=== PATIENT | female | born 1975 | race American Indian/Alaskan Native ===

== ENCOUNTER 2018-11-06 22:19 | Emergency (ER) | payer SELFPAY ==
[2018-11-06 22:26] VITALS: BP 156/94
--- NOTE | 2018-11-06 22:30 | Event Note ---
ED Screening Note Date of service: 11/06/18 Time: 22:26 ED Screening Note: 42 y o rosa presents with sob This initial assessment/diagnostic orders/clinical plan/treatment(s) is/are subject to change based on patients health status, clinical progression and re- assessment by fellow clinical providers in the ED. Further treatment and workup at subsequent clinical providers discretion. Patient/guardian urged not to elope from the ED as their condition may be serious if not clinically assessed and managed. Initial orders include:
[2018-11-06] MEDS ORDERED: DUONEB *Not for PRN Use IH ONE (22:52)
[2018-11-06 22:59] LABS: Hematocrit 41.8 % (30.3-42.9); Hemoglobin 13.6 gm/dl (10.1-14.3); Mean Corpuscular HGB Conc 33 % (30-34); Mean Corpuscular Volume 81 fl (79-97); Platelet Count 250 K/mm3 (140-440); Red Blood Count 5.15 M/mm3 (3.65-5.03); Red Cell Distribution Width 16.1 % (13.2-15.2)
[2018-11-06 23:21] LABS: BUN/Creatinine Ratio 8; Blood Urea Nitrogen 6 mg/dL (7-17); Calcium 9.3 mg/dL (8.4-10.2); Hemolysis Index 4
--- NOTE | 2018-11-07 00:33 | XRay Report ---
CHEST 2 VIEWS INDICATION: Dyspnea. COMPARISON: None. FINDINGS: Support devices: None. Heart: Within normal limits. Lungs/Pleura: No acute air space or interstitial disease. No significant pleural effusion. IMPRESSION: No acute findings. Signer Name: Atul Ariza MD Signed: 11/07/2018 12:28 AM Workstation Name: [email or web address]
[2018-11-07 01:54] LABS: Anisocytosis 1+; Basophils % (Manual) 0 % (0.0-1.8); Platelet Estimate Consistent w Auto; Total Cells Counted 100
[2018-11-07] MEDS ORDERED: DUONEB *Not for PRN Use IH STA (02:50)
[2018-11-07] MEDS ORDERED: SOLU-Medrol IV ONE (02:50)
--- NOTE | 2018-11-07 04:13 | Cat Scan Report ---
CT angio chest INDICATION / CLINICAL INFORMATION: Shortness of breath. Cough. TECHNIQUE: Axial CT images were obtained after injection of Omnipaque 350, 100 cc IV injection. IV contrast usin g CTA protocol. 3 plane MIP / 3D reconstructions were produced. All CT scans at this location are per formed using CT dose reduction for ALARA by means of automated exposure control. COMPARISON: None available. FINDINGS: Negative for aneurysm, dissection or pulmonary embolus. No mediastinal mass or adenopathy is present. Imaging of the upper abdomen is unremarkable. Evaluation the lungs demonstrates patchy nodular infiltrate at the far left base laterally. IMPRESSION: 1. Negative for pulmonary embolus. 2. Left basilar pneumonia. Signer Name: Atul Ariza MD Signed: 11/07/2018 4:08 AM Workstation Name: [id number]
[2018-11-07] MEDS ORDERED: LEVAQUIN PO STA (05:22)
--- NOTE | 2018-11-07 05:31 | Emergency Department Report ---
ED General Adult HPI - General Chief complaint: Dyspnea/Respdistress Stated complaint: SOB Time Seen by Provider: 11/06/18 22:25 Source: patient Mode of arrival: Ambulatory Limitations: No Limitations - History of Present Illness Initial comments: 42-year-old obese female to emergency Department complaining of a 3 day history of a productive cough associated chest discomfort, nasal congestion, wheezing and shortness of breath. Reports this is a dark yellow color, however, no hemoptysis, hematemesis, no hematochezia. Was no fever, chills, sweats. No abdominal pain, no flank pain. No rashes noted to medication and denies smoking. -: Gradual Radiation: non-radiation Quality: burning Consistency: constant Improves with: none Worsens with: none Associated Symptoms: denies: chest pain, cough, diaphoresis, loss of appetite, rash, shortness of breath, syncope, weakness - Related Data Previous Rx's Medication Instructions Recorded Last Taken Type ALBUTEROL Inhaler (OR & NICU) 2 puff IH QID PRN #1 inhalation 11/07/18 Unknown Rx [ProAir HFA Inhaler] Benzonatate [Tessalon Perles] 100 mg PO Q8HR #30 capsule 11/07/18 Unknown Rx levoFLOXacin [Levaquin] 750 mg PO QDAY #7 tablet 11/07/18 Unknown Rx predniSONE [Deltasone] 50 mg PO QDAY #5 tab 11/07/18 Unknown Rx Allergies Allergy/AdvReac Type Severity Reaction Status Date / Time morphine Allergy Hives Verified 11/06/18 22:22 ED Review of Systems ROS: Stated complaint: SOB Other details as noted in HPI Comment: All other systems reviewed and negative ED Past Medical Hx - Past Medical History Previous Medical History?: Yes Hx Asthma: Yes - Surgical History Past Surgical History?: No - Social History Smoking Status: Never Smoker Substance Use Type: None - Medications Home Medications: Home Medications Medication Instructions Recorded Confirmed Last Taken Type ALBUTEROL Inhaler (OR & NICU) 2 puff IH QID PRN #1 inhalation 11/07/18 Unknown Rx [ProAir HFA Inhaler] Benzonatate [Tessalon Perles] 100 mg PO Q8HR #30 capsule 11/07/18 Unknown Rx levoFLOXacin [Levaquin] 750 mg PO QDAY #7 tablet 11/07/18 Unknown Rx predniSONE [Deltasone] 50 mg PO QDAY #5 tab 11/07/18 Unknown Rx ED Physical Exam - General Limitations: No Limitations General appearance: alert, in no apparent distress - Head Head exam: Present: atraumatic, normocephalic - Eye Eye exam: Present: normal appearance, PERRL, EOMI Pupils: Present: normal accommodation - ENT ENT exam: Present: mucous membranes moist - Neck Neck exam: Present: normal inspection - Respiratory Respiratory exam: Present: normal lung sounds bilaterally, wheezes, rhonchi. Absent: respiratory distress, accessory muscle use, decreased breath sounds - Cardiovascular Cardiovascular Exam: Present: regular rate, normal rhythm. Absent: systolic murmur, diastolic murmur, rubs, gallop - GI/Abdominal GI/Abdominal exam: Present: soft, normal bowel sounds - Extremities Exam Extremities exam: Present: normal inspection, full ROM, normal capillary refill. Absent: pedal edema - Back Exam Back exam: Present: normal inspection. Absent: CVA tenderness (R), CVA tenderness (L) - Neurological Exam Neurological exam: Present: alert, oriented X3, CN II-XII intact - Psychiatric Psychiatric exam: Present: normal affect, normal mood - Skin Skin exam: Present: warm, dry, intact, normal color. Absent: rash ED Course Vital Signs 11/06/18 11/06/18 22:25 22:58 Temperature 98.2 F Pulse Rate 119 H Pulse Rate [ 89 Anterior] Respiratory 20 Rate Respiratory 18 Rate [Anterior] Blood Pressure 156/94 O2 Sat by Pulse 100 Oximetry ED Medical Decision Making - Lab Data Result diagrams: 11/06/18 22:47 11/06/18 22:47 - Medical Decision Making 42-year-old female presents to emergency department complaining of chest pain and coughing. Chest x-ray consistent with left basilar pneumonia. She'll be given an antibiotic-coated to take for the next few days in conjunction with the inhaler and cough medication. There is no hemoptysis Critical care attestation.: If time is entered above; I have spent that time in minutes in the direct care of this critically ill patient, excluding procedure time. ED Disposition Clinical Impression: Left lower lobe pneumonia Disposition: DC-01 TO HOME OR SELFCARE Is pt being admited?: No Does the pt Need Aspirin: No Condition: Stable Instructions: Bacterial Pneumonia (ED), Community-acquired Pneumonia (ED) Referrals: PRIMARY CARE, [Primary Care Provider] - 3-5 Days [facility] [Provider Group] - 3-5 Days
[2018-11-07] MEDS ORDERED: PROVENTIL IH ONE (05:45)
[2018-11-07] MEDS ORDERED: SOLU-Medrol ONE (05:45)
[2018-11-07] MEDS ORDERED: ATROVENT IH ONE (05:46)
== END 2018-11-07 07:26 | disposition home or self-care (01) ==
LOC: ED 22:19
DX: J18.1 Lobar pneumonia, unspecified organism (principal); J45.909 Unspecified asthma, uncomplicated; Z79.899 Other long term (current) drug therapy; Z88.6 Allergy status to analgesic agent
CPT/HCPCS: 36415; 71046; 71275; 80048; 82140; 85007; 85025; 85379; 94640; 96374; 99285; J2930; Q9967; 94644

== ENCOUNTER 2018-11-24 07:58 | Emergency (ER) | payer SELFPAY ==
[2018-11-24] MEDS ORDERED: ATROVENT IH ONE ×2 (08:11→09:15)
[2018-11-24] MEDS ORDERED: PROVENTIL IH ONE ×2 (08:11→09:15)
--- NOTE | 2018-11-24 08:16 | Emergency Department Report ---
ED Shortness of Breath HPI - General Chief Complaint: Dyspnea/Respdistress Stated Complaint: ASTHMA Time Seen by Provider: 11/24/18 08:10 Source: EMS Mode of arrival: Stretcher Limitations: No Limitations - History of Present Illness Initial Comments: Patient is 43 years old female with history of asthma. Patient brought to the emergency room via EMS from home for asthma attack. Patient stated the symptoms started last night with shortness of breath and wheezing. Patient stated that she was admitted last time for pneumonia. Patient denied any fever or chills. No nausea or vomiting. No chest pain. Patient received albuterol, Atrovent, Solu-Medrol and 2 g of magnesium sulfate by EMS. Patient stated that symptoms is better but she is still wheezing. MD Complaint: shortness of breath, cough, "asthma attack" -: Last night Known History Of: asthma Context: recent URI Treatments Prior to Arrival: bronchodilator - Related Data Home Oxygen Therapy: No Previous Rx's Medication Instructions Recorded Last Taken Type ALBUTEROL Inhaler (OR & NICU) 2 puff IH QID PRN #1 inhalation 11/07/18 Unknown Rx [ProAir HFA Inhaler] Benzonatate [Tessalon Perles] 100 mg PO Q8HR #30 capsule 11/07/18 Unknown Rx levoFLOXacin [Levaquin] 750 mg PO QDAY #7 tablet 11/07/18 Unknown Rx predniSONE [Deltasone] 50 mg PO QDAY #5 tab 11/07/18 Unknown Rx Allergies Allergy/AdvReac Type Severity Reaction Status Date / Time morphine Allergy Hives Verified 11/06/18 22:22 ED Review of Systems ROS: Stated complaint: ASTHMA Other details as noted in HPI Comment: All other systems reviewed and negative Constitutional: denies: chills, fever Respiratory: cough, shortness of breath, SOB with exertion, SOB at rest, wheezing. denies: orthopnea Cardiovascular: denies: chest pain, palpitations Gastrointestinal: denies: abdominal pain, nausea, vomiting ED Past Medical Hx - Past Medical History Previous Medical History?: Yes Hx Asthma: Yes - Surgical History Past Surgical History?: No - Social History Smoking Status: Never Smoker Substance Use Type: None - Medications Home Medications: Home Medications Medication Instructions Recorded Confirmed Last Taken Type ALBUTEROL Inhaler (OR & NICU) 2 puff IH QID PRN #1 inhalation 11/07/18 Unknown Rx [ProAir HFA Inhaler] Benzonatate [Tessalon Perles] 100 mg PO Q8HR #30 capsule 11/07/18 Unknown Rx levoFLOXacin [Levaquin] 750 mg PO QDAY #7 tablet 11/07/18 Unknown Rx predniSONE [Deltasone] 50 mg PO QDAY #5 tab 11/07/18 Unknown Rx ED Physical Exam - General Limitations: No Limitations General appearance: alert, in no apparent distress - Head Head exam: Present: atraumatic, normocephalic, normal inspection - Eye Eye exam: Present: normal appearance - ENT ENT exam: Present: normal exam, mucous membranes moist - Neck Neck exam: Present: normal inspection, full ROM. Absent: tenderness, meningismu s, lymphadenopathy, thyromegaly - Respiratory Respiratory exam: Present: wheezes, rhonchi. Absent: respiratory distress, rales, stridor, chest wall tenderness, accessory muscle use, decreased breath sounds, prolonged expiratory - Cardiovascular Cardiovascular Exam: Present: regular rate, normal rhythm, normal heart sounds - GI/Abdominal GI/Abdominal exam: Present: soft, normal bowel sounds. Absent: distended, tenderness, guarding, rebound, rigid, organomegaly, mass, bruit, pulsatile mass, hernia - Extremities Exam Extremities exam: Present: normal inspection, full ROM, normal capillary refill. Absent: pedal edema, calf tenderness - Back Exam Back exam: Present: normal inspection, full ROM. Absent: CVA tenderness (R), CVA tenderness (L), muscle spasm, paraspinal tenderness, vertebral tenderness, rash noted - Neurological Exam Neurological exam: Present: alert, oriented X3, CN II-XII intact, normal gait, reflexes normal - Psychiatric Psychiatric exam: Present: normal mood - Skin Skin exam: Present: warm, intact, normal color ED Course Vital Signs 11/24/18 11/24/18 11/24/18 07:59 08:15 08:25 Temperature 98.4 F Pulse Rate 126 H 128 H Pulse Rate [ 123 H Posterior Bilateral Throughout] Respiratory 20 24 Rate Respiratory 22 Rate [Posterior Bilateral Throughout] Blood Pressure 162/98 Blood Pressure 161/99 [Right] O2 Sat by Pulse 94 94 Oximetry 11/24/18 11/24/18 09:19 10:02 Temperature Pulse Rate 128 H Pulse Rate [ 127 H Posterior Bilateral Throughout] Respiratory 22 Rate Respiratory 24 Rate [Posterior Bilateral Throughout] Blood Pressure Blood Pressure 130/79 [Right] O2 Sat by Pulse 94 Oximetry ED Medical Decision Making - Lab Data Result diagrams: 11/24/18 08:24 11/24/18 08:24 - EKG Data -: EKG Interpreted by Me EKG shows normal: sinus rhythm Rate: tachycardia - EKG Data Interpretation: no acute changes - Radiology Data Radiology results: report reviewed - Medical Decision Making Patient is 43 years old female with history of asthma. Patient brought to the emergency room via EMS from home for asthma attack. Patient stated the symptoms started last night with shortness of breath and wheezing. Patient stated that she was admitted last time for pneumonia. Patient denied any fever or chills. No nausea or vomiting. No chest pain. Patient received albuterol, Atrovent, Solu-Medrol and 2 g of magnesium sulfate by EMS. Patient stated that symptoms is better but she is still wheezing. Patient received albuterol, Atrovent, Solu-Medrol. Patient just x-ray is unremarkable. Labs reviewed and is negative for acute findings. Patient stated that she is feeling much better. Patient advised to follow his heart primary care physician in the next 2-3 days and to return to the ER if symptoms are not improved. Patient given a prescription for Medrol pack. Critical care attestation.: If time is entered above; I have spent that time in minutes in the direct care of this critically ill patient, excluding procedure time. ED Disposition Clinical Impression: Asthma exacerbation Disposition: DC-01 TO HOME OR SELFCARE Is pt being admited?: No Condition: Stable Instructions: Asthma (ED) Referrals: PRIMARY CARE, [Primary Care Provider] - 3-5 Days
[2018-11-24 08:51] LABS: Basophils # (Auto) 0.1 K/mm3 (0.0-0.1); Eosinophils # (Auto) 1.6 K/mm3 (0.0-0.4); Eosinophils % (Auto) 15.1 % (0.0-4.3); Hematocrit 36.3 % (30.3-42.9); Hemoglobin 11.5 gm/dl (10.1-14.3); Lymphocytes # (Auto) 1.5 K/mm3 (1.2-5.4); Lymphocytes % (Auto) 14.6 % (13.4-35.0); Mean Corpuscular HGB Conc 32 % (30-34); Mean Corpuscular Volume 80 fl (79-97); Monocytes # (Auto) 0.7 K/mm3 (0.0-0.8); Monocytes % (Auto) 7.1 % (0.0-7.3); Platelet Count 241 K/mm3 (140-440); Red Blood Count 4.53 M/mm3 (3.65-5.03); Red Cell Distribution Width 15.9 % (13.2-15.2)
[2018-11-24 09:05] LABS: BUN/Creatinine Ratio 7; Blood Urea Nitrogen 5 mg/dL (7-17); Calcium 8.7 mg/dL (8.4-10.2); Hemolysis Index 5
--- NOTE | 2018-11-24 09:11 | XRay Report ---
CHEST 1 VIEW INDICATION: Dyspnea. COMPARISON: 11/06/2018 FINDINGS: Support devices: None. Heart: Within normal limits. Lungs/Pleura: Minimal streaky bibasilar atelectasis with otherwise clear lungs. Additional findings: None. IMPRESSION: 1. Minimal streaky bibasilar atelectasis with otherwise clear lungs. Signer Name: Eliseo Saenz MD Signed: 11/24/2018 9:06 AM Workstation Name: [id number]
[2018-11-24 11:33] VITALS: BP 122/74
== END 2018-11-24 11:32 | disposition home or self-care (01) ==
LOC: ED 07:58
DX: J45.901 Unspecified asthma with (acute) exacerbation (principal)
CPT/HCPCS: 36415; 71045; 80048; 85025; 93005; 93010; 94644

== ENCOUNTER 2018-12-16 08:32 | Observation (INO) | payer SELFPAY ==
[2018-12-16] MEDS ORDERED: ATROVENT IH ONE ×3 (08:48→13:37)
[2018-12-16] MEDS ORDERED: DECADRON IM ONE (08:48)
[2018-12-16] MEDS ORDERED: PROVENTIL IH ONE ×3 (08:48→13:37)
--- NOTE | 2018-12-16 08:53 | Emergency Department Report ---
<JOSEFINA MOTA - Last Filed: 12/16/18 20:24> ED Asthma HPI - General Chief Complaint: Adult Asthma Stated Complaint: SOB/HEAVY WHEZZING Time Seen by Provider: 12/16/18 08:44 Source: patient Mode of arrival: Ambulatory Limitations: No Limitations - History of Present Illness Initial Comments: Patient is a 43-year-old female presents emergency room with complaints of shortness of breath and wheezing for the last 3 days. She says it worsened today. She states that she has also had a productive cough with mucus production. She denies any fever or sick contacts. She states that she has past medical history of asthma and uses Symbicort and albuterol nebulizer treatments. She was last admitted for her asthma year ago. she has never had to be intubated before. Patient states her last menstrual cycle November 20. She has had tubal ligation and partial hysterectomy. - Related Data Previous Rx's Medication Instructions Recorded Last Taken Type ALBUTEROL Inhaler (OR & NICU) 2 puff IH QID PRN #1 inhalation 11/07/18 Unknown Rx [ProAir HFA Inhaler] Benzonatate [Tessalon Perles] 100 mg PO Q8HR #30 capsule 11/07/18 Unknown Rx levoFLOXacin [Levaquin] 750 mg PO QDAY #7 tablet 11/07/18 Unknown Rx predniSONE [Deltasone] 50 mg PO QDAY #5 tab 11/07/18 Unknown Rx Prednisone [predniSONE 10 mg 10 mg PO .TAPER #1 tab.ds.pk 11/24/18 Unknown Rx (6-Day Pack, 21 Tabs)] Allergies Allergy/AdvReac Type Severity Reaction Status Date / Time morphine Allergy Hives Verified 11/06/18 22:22 ED Review of Systems Comment: All other systems reviewed and negative ED Past Medical Hx - Past Medical History Hx Asthma: Yes - Surgical History Past Surgical History?: No - Social History Smoking Status: Never Smoker Substance Use Type: None - Medications Home Medications: Home Medications Medication Instructions Recorded Confirmed Last Taken Type ALBUTEROL Inhaler (OR & NICU) 2 puff IH QID PRN #1 inhalation 11/07/18 Unknown Rx [ProAir HFA Inhaler] Benzonatate [Tessalon Perles] 100 mg PO Q8HR #30 capsule 11/07/18 Unknown Rx levoFLOXacin [Levaquin] 750 mg PO QDAY #7 tablet 11/07/18 Unknown Rx predniSONE [Deltasone] 50 mg PO QDAY #5 tab 11/07/18 Unknown Rx Prednisone [predniSONE 10 mg 10 mg PO .TAPER #1 tab.ds.pk 11/24/18 Unknown Rx (6-Day Pack, 21 Tabs)] ED Physical Exam - General Limitations: No Limitations General appearance: alert, in no apparent distress - Head Head exam: Present: atraumatic, normocephalic - Eye Eye exam: Present: normal appearance - ENT ENT exam: Present: normal orophraynx, mucous membranes moist - Respiratory Respiratory exam: Present: respiratory distress (mild), wheezes (diffusely upon inspiration and expiration), rhonchi, prolonged expiratory, other (audible wheezing without auscultation). Absent: rales, stridor, chest wall tenderness, accessory muscle use - Cardiovascular Cardiovascular Exam: Present: regular rate, normal rhythm, normal heart sounds. Absent: systolic murmur, diastolic murmur, rubs, gallop - Neurological Exam Neurological exam: Present: alert, oriented X3 - Psychiatric Psychiatric exam: Present: normal affect, normal mood - Skin Skin exam: Present: warm, dry, intact ED Course - Reevaluation(s) Reevaluation #1: 12/16/18 16:06 pt has been given three continuous neb tx, steroids, magnesium, and placed on oxygen, pt still has expiratory and inspiratory wheezes with rhonchi, pt walked in the hallway with oxygen saturation monitor and dropped to 90 percent O2 sat and pt felt SOB, will consult DR. Welch again. Reevaluation #2: 12/16/18 20:23 Dr. Patel, ER attending will resume care of patient pending admission to the hospital - Consultations Consultation #1: 12/16/18 13:[address] Welch, hospitalist to discuss pt needing to be admitted, he states he will evaluate pt at bedside Consultation #2: 12/16/18 14:23 Dr. Welch, hospitalist evaluated pt at bedside and counseled pt and advised that pt does not meet admission criteria ED Medical Decision Making - Lab Data Result diagrams: 12/16/18 16:59 12/16/18 16:59 Lab Results 12/16/18 12/16/18 12/16/18 Range/Units 13:38 16:57 16:59 WBC 6.1 (4.5-11.0) K/mm3 RBC 4.75 (3.65-5.03) M/mm3 Hgb 12.0 (10.1-14.3) gm/dl Hct 37.7 (30.3-42.9) % MCV 79 (79-97) fl MCH 25 L (28-32) pg MCHC 32 (30-34) % RDW 17.3 H (13.2-15.2) % Plt Count 230 (140-440) K/mm3 Lymph % (Auto) Disintegrator Operator [place] % (Auto) Disintegrator Operator Eos % (Auto) Disintegrator Operator Baso % (Auto) Disintegrator Operator Lymph # Disintegrator Operator [place] # Disintegrator Operator Eos # Disintegrator Operator Baso # Disintegrator Operator Add Manual Diff Complete Total Counted 100 Seg Neutrophils % Disintegrator Operator Seg Neuts % (Manual) 90.0 H (40.0-70.0) % Band Neutrophils % 1.0 % Lymphocytes % (Manual) 8.0 L (13.4-35.0) % Reactive Lymphs % (Man) 0 % Monocytes % (Manual) 0 (0.0-7.3) % Eosinophils % (Manual) 1.0 (0.0-4.3) % Basophils % (Manual) 0 (0.0-1.8) % Metamyelocytes % 0 % Myelocytes % 0 % Promyelocytes % 0 % Blast Cells % 0 % Nucleated RBC % Not Reportable Seg Neutrophils # Disintegrator Operator Seg Neutrophils # Man 5.5 (1.8-7.7) K/mm3 Band Neutrophils # 0.1 K/mm3 Lymphocytes # (Manual) 0.5 L (1.2-5.4) K/mm3 Abs React Lymphs (Man) 0.0 K/mm3 Monocytes # (Manual) 0.0 (0.0-0.8) K/mm3 Eosinophils # (Manual) 0.1 (0.0-0.4) K/mm3 Basophils # (Manual) 0.0 (0.0-0.1) K/mm3 Metamyelocytes # 0.0 K/mm3 Myelocytes # 0.0 K/mm3 Promyelocytes # 0.0 K/mm3 Blast Cells # 0.0 K/mm3 WBC Morphology Not Reportable Hypersegmented Neuts Not Reportable Hyposegmented Neuts Not Reportable Hypogranular Neuts Not Reportable Smudge Cells Not Reportable Toxic Granulation Not Reportable Toxic Vacuolation Not Reportable Dohle Bodies Not Reportable Pelger-Huet Anomaly Not Reportable Ana Rods Not Reportable Platelet Estimate Consistent w auto Clumped Platelets Not Reportable Plt Clumps, EDTA Not Reportable Large Platelets Not Reportable Giant Platelets Not Reportable Platelet Satelliting Not Reportable Plt Morphology Comment Not Reportable RBC Morphology Not Reportable Dimorphic RBCs Not Reportable Polychromasia Not Reportable Hypochromasia 1+ Poikilocytosis Not Reportable Anisocytosis Not Reportable Microcytosis Not Reportable Macrocytosis Not Reportable Spherocytes Not Reportable Pappenheimer Bodies Not Reportable Sickle Cells Not Reportable Target Cells Not Reportable Tear Drop Cells Not Reportable Ovalocytes Few Helmet Cells Not Reportable Pastr[place] Bodies Not Reportable [place] Rings Not Reportable Misty Cells Not Reportable Bite Cells Not Reportable Crenated Cell Not Reportable Elliptocytes Not Reportable Acanthocytes (Spur) Not Reportable Rouleaux Not Reportable Hemoglobin C Crystals Not Reportable Schistocytes Not Reportable Malaria parasites Not Reportable Selvin Bodies Not Reportable Hem Pathologist Commnt No POC ABG pH 7.371 (7.35-7.45) POC ABG pCO2 34.3 L (35-45) POC ABG pO2 66 L (80-105) POC ABG HCO3 19.9 (22-26 mml/L) POC ABG Total CO2 21 (23-27mmol/L) POC ABG O2 Sat 92 POC ABG Base Excess -5 ((-2) - (+3)mmol/L) FiO2 21 % Sodium (137-145) mmol/L Potassium (3.6-5.0) mmol/L Chloride (98-107) mmol/L Carbon Dioxide (22-30) mmol/L Anion Gap mmol/L BUN (7-17) mg/dL Creatinine (0.7-1.2) mg/dL Estimated GFR ml/min BUN/Creatinine Ratio % Glucose (65-100) mg/dL Calcium (8.4-10.2) mg/dL Total Bilirubin (0.1-1.2) mg/dL AST (5-40) units/L ALT (7-56) units/L Alkaline Phosphatase (35-129) units/L Total Protein (6.3-8.2) g/dL Albumin (3.9-5) g/dL Albumin/Globulin Ratio % HCG, Qual (Negative) Urine Color Yellow (Yellow) Urine Turbidity Slightly-cloudy (Clear) Urine pH 5.0 (5.0-7.0) Ur Specific [place] 1.012 (1.003-1.030) Urine Protein 30 mg/dl (Negative) mg/dL Urine Glucose (UA) Neg (Negative) mg/dL Urine Ketones 20 (Negative) mg/dL Urine Blood Neg (Negative) Urine Nitrite Neg (Negative) Urine Bilirubin Neg (Negative) Urine Urobilinogen < 2.0 (<2.0) mg/dL Ur Leukocyte Esterase Tr (Negative) Urine WBC (Auto) 3.0 (0.0-6.0) /HPF Urine RBC (Auto) 3.0 (0.0-6.0) /HPF U Epithel Cells (Auto) 5.0 (0-13.0) /HPF Urine Mucus Few /HPF 12/16/18 12/16/18 Range/Units 16:59 16:59 WBC (4.5-11.0) K/mm3 RBC (3.65-5.03) M/mm3 Hgb (10.1-14.3) gm/dl Hct (30.3-42.9) % MCV (79-97) fl MCH (28-32) pg MCHC (30-34) % RDW (13.2-15.2) % Plt Count (140-440) K/mm3 Lymph % (Auto) [place] % (Auto) Eos % (Auto) Baso % (Auto) Lymph # [place] # Eos # Baso # Add Manual Diff Total Counted Seg Neutrophils % Seg Neuts % (Manual) (40.0-70.0) % Band Neutrophils % % Lymphocytes % (Manual) (13.4-35.0) % Reactive Lymphs % (Man) % Monocytes % (Manual) (0.0-7.3) % Eosinophils % (Manual) (0.0-4.3) % Basophils % (Manual) (0.0-1.8) % Metamyelocytes % % Myelocytes % % Promyelocytes % % Blast Cells % % Nucleated RBC % Seg Neutrophils # Seg Neutrophils # Man (1.8-7.7) K/mm3 Band Neutrophils # K/mm3 Lymphocytes # (Manual) (1.2-5.4) K/mm3 Abs React Lymphs (Man) K/mm3 Monocytes # (Manual) (0.0-0.8) K/mm3 Eosinophils # (Manual) (0.0-0.4) K/mm3 Basophils # (Manual) (0.0-0.1) K/mm3 Metamyelocytes # K/mm3 Myelocytes # K/mm3 Promyelocytes # K/mm3 Blast Cells # K/mm3 WBC Morphology Hypersegmented Neuts Hyposegmented Neuts Hypogranular Neuts Smudge Cells Toxic Granulation Toxic Vacuolation Dohle Bodies Pelger-Huet Anomaly Ana Rods Platelet Estimate Clumped Platelets Plt Clumps, EDTA Large Platelets Giant Platelets Platelet Satelliting Plt Morphology Comment RBC Morphology Dimorphic RBCs Polychromasia Hypochromasia Poikilocytosis Anisocytosis Microcytosis Macrocytosis Spherocytes Pappenheimer Bodies Sickle Cells Target Cells Tear Drop Cells Ovalocytes Helmet Cells Pastrana-[place] Bodies Ellabell Rings [place] Cells Bite Cells Crenated Cell Elliptocytes Acanthocytes (Spur) Rouleaux Hemoglobin C Crystals Schistocytes Malaria parasites Selvin Bodies Hem Pathologist Commnt POC ABG pH (7.35-7.45) POC ABG pCO2 (35-45) POC ABG pO2 (80-105) POC ABG HCO3 (22-26 mml/L) POC ABG Total CO2 (23-27mmol/L) POC ABG O2 Sat POC ABG Base Excess ((-2) - (+3)mmol/L) FiO2 % Sodium 139 (137-145) mmol/L Potassium 3.7 (3.6-5.0) mmol/L Chloride 104.4 (98-107) mmol/L Carbon Dioxide 19 L (22-30) mmol/L Anion Gap 19 mmol/L BUN 6 L (7-17) mg/dL Creatinine 0.7 (0.7-1.2) mg/dL Estimated GFR > 60 ml/min BUN/Creatinine Ratio 9 % Glucose 146 H (65-100) mg/dL Calcium 8.7 (8.4-10.2) mg/dL Total Bilirubin 0.30 (0.1-1.2) mg/dL AST 28 (5-40) units/L ALT 48 (7-56) units/L Alkaline Phosphatase 64 (35-129) units/L Total Protein 7.8 (6.3-8.2) g/dL Albumin 4.1 (3.9-5) g/dL Albumin/Globulin Ratio 1.1 % HCG, Qual Negative (Negative) Urine Color (Yellow) Urine Turbidity (Clear) Urine pH (5.0-7.0) Ur Specific [place] (1.003-1.030) Urine Protein (Negative) mg/dL Urine Glucose (UA) (Negative) mg/dL Urine Ketones (Negative) mg/dL Urine Blood (Negative) Urine Nitrite (Negative) Urine Bilirubin (Negative) Urine Urobilinogen (<2.0) mg/dL Ur Leukocyte Esterase (Negative) Urine WBC (Auto) (0.0-6.0) /HPF Urine RBC (Auto) (0.0-6.0) /HPF U Epithel Cells (Auto) (0-13.0) /HPF Urine Mucus /HPF - Radiology Data Radiology results: report reviewed CHEST 2 VIEWS INDICATION / CLINICAL INFORMATION: cough, wheezing. History of asthma COMPARISON: 11/24/2018 FINDINGS: SUPPORT DEVICES: None. HEART / MEDIASTINUM: No significant abnormality. LUNGS / PLEURA: Mild chronic interstitial disease is noted. There is mild peribronchial cuffing indicative of reactive airways disease/asthma. Overall appearance of the chest radiograph is unchanged. I do not see any findings to suggest the presence of pneumonia. No pleural effusion. No pneumothorax. IMPRESSION: Mild chronic interstitial disease with peribronchial cuffing consistent with patient's history of asthma. No focal superimposed disease noted. Signer Name: Elana Huerta MD Signed: 12/16/2018 11:54 AM Workstation Name: [id number] Transcribed By: JR Dictated By: Elana Huerta MD Electronically Authenticated By: Elana Huerta MD Signed Date/Time: 12/16/18 1154 ED Disposition Clinical Impression: Hypoxia Asthma with acute exacerbation Qualifiers: Asthma severity: severe Asthma persistence: persistent Qualified Code(s): J45.51 - Severe persistent asthma with (acute) exacerbation Acute bronchitis Qualifiers: Bronchitis organism: unspecified organism Qualified Code(s): J20.9 - Acute bronchitis, unspecified Disposition: DC-09 OP ADMIT IP TO THIS HOSP Condition: Stable Instructions: Acute Bronchitis (ED) Referrals: PRIMARY CAREMD [Primary Care Provider] - 3-5 Days <NAROLANDO - Last Filed: 12/16/18 21:34> ED Review of Systems ROS: Stated complaint: SOB/HEAVY WHEZZING Other details as noted in HPI ED Course Vital Signs 12/16/18 12/16/18 12/16/18 08:39 11:42 13:10 Temperature 98.9 F Pulse Rate 101 H 104 H Pulse Rate [ 102 H Anterior Bilateral Throughout] Respiratory 22 18 Rate Respiratory 19 Rate [Anterior Bilateral Throughout] Blood Pressure 157/94 153/84 [Left] O2 Sat by Pulse 96 95 Oximetry 12/16/18 12/16/18 13:44 16:34 Temperature Pulse Rate Pulse Rate [ 101 H 104 H Anterior Bilateral Throughout] Respiratory Rate Respiratory 17 17 Rate [Anterior Bilateral Throughout] Blood Pressure [Left] O2 Sat by Pulse Oximetry - Reevaluation(s) Reevaluation #3: 12/16/18 21:28 This patient was presented to me by the mid-level provider MARISSA Ibrahim. Patient presented to the emergency room with shortness of breath and asthma exacerbation. Despite multiple breathing treatments, steroids, antibiotics, patient is still wheezing and she does desaturate to 90% on room air when she ambulates in the ED. I attempted to admit the patient to Dr. Welch the hospitalist. However he declined to admitting the patient. Clinically this patient needs to be admitted for observation until she clinically improves to a point for discharge. I will talk to her overnight hospitalist Dr. Dan and possibly admit the patient for observation. Clinically patient is not ready to be discharged yet. - Consultations Consultation #3: 12/16/18 21:28 Discussed patient with the hospitalist on-call Dr Dan. He will admit the patient for observation and further management. ED Medical Decision Making - Lab Data Result diagrams: 12/16/18 16:59 12/16/18 16:59 - Medical Decision Making Acute asthma exacerbation. Acute bronchitis. Hypoxia. Patient desaturates when she walks around the emergency room. She is still wheezing despite multiple breathing treatments, antibiotics and steroids. Patient meets criteria to be admitted for observation until clinical improvement is a shift. Critical care attestation.: If time is entered above; I have spent that time in minutes in the direct care of this critically ill patient, excluding procedure time. ED Disposition Is pt being admited?: Yes Does the pt Need Aspirin: No Time of Disposition: 21:34
[2018-12-16] MEDS ORDERED: MAGNESIUM SULFATE 1 GM in NACL 0.9% 50 ML IV ONE (11:10)
--- NOTE | 2018-12-16 11:59 | XRay Report ---
CHEST 2 VIEWS INDICATION / CLINICAL INFORMATION: cough, wheezing. History of asthma COMPARISON: 11/24/2018 FINDINGS: SUPPORT DEVICES: None. HEART / MEDIASTINUM: No significant abnormality. LUNGS / PLEURA: Mild chronic interstitial disease is noted. There is mild peribronchial cuffing indic ative of reactive airways disease/asthma. Overall appearance of the chest radiograph is unchanged. I do not see any findings to suggest the presence of pneumonia. No pleural effusion. No pneumothorax. IMPRESSION: Mild chronic interstitial disease with peribronchial cuffing consistent with patient's hi story of asthma. No focal superimposed disease noted. Signer Name: Elana Huerta MD Signed: 12/16/2018 11:54 AM Workstation Name: [id number]
[2018-12-16] MEDS ORDERED: XYLOCAINE 1% MPF 5 mL INFILTRATI ONE (13:16)
[2018-12-16] MEDS ORDERED: ROCEPHIN IM ONE (13:16)
[2018-12-16] MEDS ORDERED: ZITHROMAX PO ONE (13:19)
[2018-12-16] MEDS ORDERED: SOLU-Medrol IV ONE (16:45)
[2018-12-16 17:23] LABS: Bilirubin,Urine NEG (Negative); Blood,Urine NEG (Negative); Color,Urine Yellow (Yellow); Mucus,Urine FEW /HPF; Urobilinogen,Urine < 2.0 mg/dL (<2.0)
[2018-12-16 17:26] LABS: Hematocrit 37.7 % (30.3-42.9); Mean Corpuscular HGB Conc 32 % (30-34); Mean Corpuscular Volume 79 fl (79-97); Platelet Count 230 K/mm3 (140-440); Red Blood Count 4.75 M/mm3 (3.65-5.03); Red Cell Distribution Width 17.3 % (13.2-15.2)
[2018-12-16 17:37] LABS: Alanine Aminotransferase 48 units/L (7-56); Albumin 4.1 g/dL (3.9-5); BUN/Creatinine Ratio 9; Blood Urea Nitrogen 6 mg/dL (7-17); Calcium 8.7 mg/dL (8.4-10.2); Hemolysis Index 3
--- NOTE | 2018-12-16 18:16 | Event Note ---
Date: 12/16/18 Pt seen and evaluated: Pt does not meet admission criteria. Pulse oximetry 95% on Room air, 92% on exertion.
[2018-12-16 19:27] LABS: Band Neutrophils # (Manual) 0.1 K/mm3; Basophils % (Manual) 0 % (0.0-1.8); Monocytes % (Manual) 0 % (0.0-7.3); Total Cells Counted 100
[2018-12-16] MEDS ORDERED: NACL 0.9% 1000 ML 1,000 ML IV ONE (19:27)
[2018-12-16 19:28] LABS: Hypochromasia 1+; Ovalocytes Few; Platelet Estimate Consistent w Auto
[2018-12-16] MEDS ORDERED: TYLENOL PO PRN (22:34)
[2018-12-17] MEDS: HEPARIN SUB-Q SCH ×2 (01:47→09:36)
[2018-12-17] MEDS ORDERED: ROBITUSSIN PO PRN (04:29)
--- NOTE | 2018-12-17 04:46 | History and Physical Report ---
CHIEF COMPLAINT: Shortness of breath. Other complaint include cough. HISTORY OF PRESENT ILLNESS: The patient is a 43-year-old female with past medical history of asthma, who presented to the Emergency Room with history of shortness of breath and wheezing going on for 3 days. Also, the patient complained about cough productive of yellow sputum. There is no history of fever or chills and no history of nausea or vomiting. The patient also denied history of chest pain and said that she has been using albuterol nebulizer at home without much relief. The patient came to the Emergency Room and was treated with nebulizers and steroids, but when the patient was about to be discharged, she desaturated when she was made to engage in some mild walking activity. The patient was subsequently presented for admission. PAST MEDICAL HISTORY: Pertinent for asthma. PAST SURGICAL HISTORY: Unremarkable. FAMILY HISTORY: Noncontributory. SOCIAL HISTORY: The patient lives with family. Does not smoke, does not drink alcohol and does not use illicit drugs. MEDICATIONS: The patient's home medications include albuterol inhaler 2 puffs by inhalation q.i.d. Also, the patient is on budesonide 2 mL by inhalation q. 4 hours. ALLERGIES: THE PATIENT IS ALLERGIC TO MORPHINE. REVIEW OF SYSTEMS: CONSTITUTIONAL: There is no fever, no chills, no diaphoresis. HEENT: There is no headache or sore throat. CARDIOVASCULAR SYSTEM: There is no chest pain or orthopnea. RESPIRATORY SYSTEM: Shortness of breath is present. Cough is present. Wheezing is present. GASTROINTESTINAL SYSTEM: There is no nausea, no vomiting, no abdominal pain, diarrhea or constipation. NEUROLOGICAL SYSTEM: There is no numbness, no dizziness, no altered mental status. MUSCULOSKELETAL SYSTEM: There is no joint pain or swelling. DERMATOLOGICAL SYSTEM: There is no skin rash or itching. GENITOURINARY SYSTEM: There is no dysuria, hematuria, or flank pain. Rest of system review is normal. PHYSICAL EXAMINATION: GENERAL: At the time of exam, the patient was found to be alert, oriented x 3 and not in acute distress. VITAL SIGNS: At the time of initial presentation shows temperature of 98.9 degrees Fahrenheit, pulse of 101, respirations 22, blood pressure 157/94, O2 sat of 96% on oxygen. HEENT: Showed pupils to be equal, round, reactive to light and accommodating. Extraocular muscles are intact. NECK: Supple with no JVD or carotid bruit. CARDIOVASCULAR SYSTEM: Showed normal first and second heart sounds with no gallops or murmurs. RESPIRATORY SYSTEM: Show reduced air entry on both sides of the lungs with expiratory wheezing and scattered crackles bilaterally. There is no use of extra-respiratory muscles. GASTROINTESTINAL SYSTEM: Show abdomen to be full, soft, nontender with no organomegaly or rigidity. NEUROLOGIC: Shows no focal deficit. MUSCULOSKELETAL SYSTEM: Show no joint swelling or tenderness. DERMATOLOGICAL SYSTEM: Show no skin rash. GENITOURINARY SYSTEM: Showing no costovertebral angle tenderness. PERTINENT LABORATORY AND IMAGING STUDIES: The patient had chest x-ray done that shows mild chronic interstitial disease with peribronchial cuffing consistent with the patient's history of asthma. There is no focal superimposed disease noted. The patient's lab results show CBC with normal white count, normal hemoglobin and normal hematocrit with CBC differential showing elevated segmented neutrophil count of 90%. Rest of CBC was unremarkable. The patient's blood gas showed normal pH of 7.37 with low pCO2 of 34, low pO2 of 66 and low O2 sat of 92% and this was done on room air. The patient's chemistry was unremarkable except for low CO2 of 19 and the patient's test was negative. Urinalysis came back unremarkable. DIAGNOSES: 1. Asthma exacerbation. 2. Hypoxia. PLAN OF CARE: 1. The patient will be placed on observation in the medical surgical . 2. The patient will be on Duo nebulizer q.i.d. 3. The patient will be on IV ceftriaxone 1 gram daily and IV Zithromax 500 mg daily. 4. The patient will be on heparin 5000 units subcutaneous q. 12 hours for DVT prophylaxis and will be on Tylenol 650 mg by mouth every 4 hours for fever and headache. 5. The patient will be on IV Solu-Medrol 60 mg q. 8 hours. 6. The patient will be on Robitussin 200 mg by mouth every 4 hours as needed for cough. 7. The patient's diet will be a regular diet. 8. patient will be on oxygen by nasal canular at 2l/min JOB# [id number] OCN/NTS MTDD
[2018-12-17] MEDS ORDERED: SOLU-Medrol IV SCH (06:00)
[2018-12-17] MEDS ORDERED: DUONEB *Not for PRN Use IH SCH (08:00)
--- NOTE | 2018-12-17 08:13 | Progress Note ---
Assessment and Plan Assessment and plan: 43-year-old woman who presents to the hospital with shortness of breath and wheezing x3 days Past medical history asthma Asthma exacerbation Steroids nebs, chest PT Acute hypoxic respiratory failure Oxygen supplementation wean as tolerated DVT prophylaxis with Lovenox History Interval history: Review of systems Constitutional: No fevers, no malaise, no joint pains CVS: No chest pain, no orthopnea, no pedal edema GI: No abdominal pain, no diarrhea, no vomiting, no constipation Respiratory: Complaining of shortness of breath and wheezing Hospitalist Physical - Physical exam Narrative exam: General.: Mild distress HEENT: Moist mucous membranes, extraocular muscles intact, no lymphadenopathy Neck: supple Cardiac: S1-S2 heard Lungs: Decreased air entry and wheezing Abdomen: soft , nontender, nondistended, bowel sounds positive Extremities: no edema clubbing or cyanosis Skin: no rash or lesions Neurologic: no gross focal deficits Psych: calm, and cooperative - Constitutional Vitals: Temp Pulse Resp BP Pulse Ox 98.8 F 86 18 122/75 96 12/17/18 05:25 12/17/18 07:22 12/17/18 07:22 12/17/18 05:25 12/17/18 07:22 Results - Labs CBC & Chem 7: 12/16/18 16:59 12/16/18 16:59 Labs: Laboratory Last Values WBC 6.1 K/mm3 (4.5-11.0) 12/16/18 16:59 RBC 4.75 M/mm3 (3.65-5.03) 12/16/18 16:59 Hgb 12.0 gm/dl (10.1-14.3) 12/16/18 16:59 Hct 37.7 % (30.3-42.9) 12/16/18 16:59 MCV 79 fl (79-97) 12/16/18 16:59 MCH 25 pg (28-32) L 12/16/18 16:59 MCHC 32 % (30-34) 12/16/18 16:59 RDW 17.3 % (13.2-15.2) H 12/16/18 16:59 Plt Count 230 K/mm3 (140-440) 12/16/18 16:59 Lymph % (Auto) Headliner Installer 12/16/18 16:59 [place] % (Auto) Headliner Installer 12/16/18 16:59 Eos % (Auto) Headliner Installer 12/16/18 16:59 Baso % (Auto) Headliner Installer 12/16/18 16:59 Lymph # [employer]liner Installer 12/16/18 16:59 [place] # Headliner Installer 12/16/18 16:59 Eos # Headliner Installer 12/16/18 16:59 Baso # Headliner Installer 12/16/18 16:59 Add Manual Diff Complete 12/16/18 16:59 Total Counted 100 12/16/18 16:59 Seg Neutrophils % Headliner Installer 12/16/18 16:59 Seg Neuts % (Manual) 90.0 % (40.0-70.0) H 12/16/18 16:59 Band Neutrophils % 1.0 % 12/16/18 16:59 Lymphocytes % (Manual) 8.0 % (13.4-35.0) L 12/16/18 16:59 Reactive Lymphs % (Man) 0 % 12/16/18 16:59 Monocytes % (Manual) 0 % (0.0-7.3) 12/16/18 16:59 Eosinophils % (Manual) 1.0 % (0.0-4.3) 12/16/18 16:59 Basophils % (Manual) 0 % (0.0-1.8) 12/16/18 16:59 Metamyelocytes % 0 % 12/16/18 16:59 Myelocytes % 0 % 12/16/18 16:59 Promyelocytes % 0 % 12/16/18 16:59 Blast Cells % 0 % 12/16/18 16:59 Nucleated RBC % Not Reportable 12/16/18 16:59 Seg Neutrophils # Headliner Installer 12/16/18 16:59 Seg Neutrophils # Man 5.5 K/mm3 (1.8-7.7) 12/16/18 16:59 Band Neutrophils # 0.1 K/mm3 12/16/18 16:59 Lymphocytes # (Manual) 0.5 K/mm3 (1.2-5.4) L 12/16/18 16:59 Abs React Lymphs (Man) 0.0 K/mm3 12/16/18 16:59 Monocytes # (Manual) 0.0 K/mm3 (0.0-0.8) 12/16/18 16:59 Eosinophils # (Manual) 0.1 K/mm3 (0.0-0.4) 12/16/18 16:59 Basophils # (Manual) 0.0 K/mm3 (0.0-0.1) 12/16/18 16:59 Metamyelocytes # 0.0 K/mm3 12/16/18 16:59 Myelocytes # 0.0 K/mm3 12/16/18 16:59 Promyelocytes # 0.0 K/mm3 12/16/18 16:59 Blast Cells # 0.0 K/mm3 12/16/18 16:59 WBC Morphology Not Reportable 12/16/18 16:59 Hypersegmented Neuts Not Reportable 12/16/18 16:59 Hyposegmented Neuts Not Reportable 12/16/18 16:59 Hypogranular Neuts Not Reportable 12/16/18 16:59 Smudge Cells Not Reportable 12/16/18 16:59 Toxic Granulation Not Reportable 12/16/18 16:59 Toxic Vacuolation Not Reportable 12/16/18 16:59 Dohle Bodies Not Reportable 12/16/18 16:59 Pelger-Huet Anomaly Not Reportable 12/16/18 16:59 Ana Rods Not Reportable 12/16/18 16:59 Platelet Estimate Consistent w auto 12/16/18 16:59 Clumped Platelets Not Reportable 12/16/18 16:59 Plt Clumps, EDTA Not Reportable 12/16/18 16:59 Large Platelets Not Reportable 12/16/18 16:59 Giant Platelets Not Reportable 12/16/18 16:59 Platelet Satelliting Not Reportable 12/16/18 16:59 Plt Morphology Comment Not Reportable 12/16/18 16:59 RBC Morphology Not Reportable 12/16/18 16:59 Dimorphic RBCs Not Reportable 12/16/18 16:59 Polychromasia Not Reportable 12/16/18 16:59 Hypochromasia 1+ 12/16/18 16:59 Poikilocytosis Not Reportable 12/16/18 16:59 Anisocytosis Not Reportable 12/16/18 16:59 Microcytosis Not Reportable 12/16/18 16:59 Macrocytosis Not Reportable 12/16/18 16:59 Spherocytes Not Reportable 12/16/18 16:59 Pappenheimer Bodies Not Reportable 12/16/18 16:59 Sickle Cells Not Reportable 12/16/18 16:59 Target Cells Not Reportable 12/16/18 16:59 Tear Drop Cells Not Reportable 12/16/18 16:59 Ovalocytes Few 12/16/18 16:59 Helmet Cells Not Reportable 12/16/18 16:59 [employer] Bodies Not Reportable 12/16/18 16:59 [place] Rings Not Reportable 12/16/18 16:59 [place] Cells Not Reportable 12/16/18 16:59 Bite Cells Not Reportable 12/16/18 16:59 Crenated Cell Not Reportable 12/16/18 16:59 Elliptocytes Not Reportable 12/16/18 16:59 Acanthocytes (Spur) Not Reportable 12/16/18 16:59 Rouleaux Not Reportable 12/16/18 16:59 Hemoglobin C Crystals Not Reportable 12/16/18 16:59 Schistocytes Not Reportable 12/16/18 16:59 Malaria parasites Not Reportable 12/16/18 16:59 [place] Bodies Not Reportable 12/16/18 16:59 Hem Pathologist Commnt No 12/16/18 16:59 POC ABG pH 7.371 (7.35-7.45) 12/16/18 13:38 POC ABG pCO2 34.3 (35-45) L 12/16/18 13:38 POC ABG pO2 66 (80-105) L 12/16/18 13:38 POC ABG HCO3 19.9 (22-26 mml/L) 12/16/18 13:38 POC ABG Total CO2 21 (23-27mmol/L) 12/16/18 13:38 POC ABG O2 Sat 92 12/16/18 13:38 POC ABG Base Excess -5 ((-2) - (+3)mmol/L) 12/16/18 13:38 FiO2 21 % 12/16/18 13:38 Sodium 139 mmol/L (137-145) 12/16/18 16:59 Potassium 3.7 mmol/L (3.6-5.0) 12/16/18 16:59 Chloride 104.4 mmol/L (98-107) 12/16/18 16:59 Carbon Dioxide 19 mmol/L (22-30) L 12/16/18 16:59 Anion Gap 19 mmol/L 12/16/18 16:59 BUN 6 mg/dL (7-17) L 12/16/18 16:59 Creatinine 0.7 mg/dL (0.7-1.2) 12/16/18 16:59 Estimated GFR > 60 ml/min 12/16/18 16:59 BUN/Creatinine Ratio 9 % 12/16/18 16:59 Glucose 146 mg/dL (65-100) H 12/16/18 16:59 Calcium 8.7 mg/dL (8.4-10.2) 12/16/18 16:59 Total Bilirubin 0.30 mg/dL (0.1-1.2) 12/16/18 16:59 AST 28 units/L (5-40) 12/16/18 16:59 ALT 48 units/L (7-56) 12/16/18 16:59 Alkaline Phosphatase 64 units/L (35-129) 12/16/18 16:59 Total Protein 7.8 g/dL (6.3-8.2) 12/16/18 16:59 Albumin 4.1 g/dL (3.9-5) 12/16/18 16:59 Albumin/Globulin Ratio 1.1 % 12/16/18 16:59 HCG, Qual Negative (Negative) 12/16/18 16:59 Urine Color Yellow (Yellow) 12/16/18 16:57 Urine Turbidity Slightly-cloudy (Clear) 12/16/18 16:57 Urine pH 5.0 (5.0-7.0) 12/16/18 16:57 Ur Specific [place] 1.012 (1.003-1.030) 12/16/18 16:57 Urine Protein 30 mg/dl mg/dL (Negative) 12/16/18 16:57 Urine Glucose (UA) Neg mg/dL (Negative) 12/16/18 16:57 Urine Ketones 20 mg/dL (Negative) 12/16/18 16:57 Urine Blood Neg (Negative) 12/16/18 16:57 Urine Nitrite Neg (Negative) 12/16/18 16:57 Urine Bilirubin Neg (Negative) 12/16/18 16:57 Urine Urobilinogen < 2.0 mg/dL (<2.0) 12/16/18 16:57 Ur Leukocyte Esterase Tr (Negative) 12/16/18 16:57 Urine WBC (Auto) 3.0 /HPF (0.0-6.0) 12/16/18 16:57 Urine RBC (Auto) 3.0 /HPF (0.0-6.0) 12/16/18 16:57 U Epithel Cells (Auto) 5.0 /HPF (0-13.0) 12/16/18 16:57 Urine Mucus Few /HPF 12/16/18 16:57 Active Medications - Current Medications Current Medications: Generic Name Dose Route Start Last Admin Trade Name Freq PRN Reason Stop Dose Admin Acetaminophen 650 mg 12/16/18 22:34 12/17/18 05:59 Tylenol PO 650 mg Q4H PRN Administration Fever >101 Albuterol/Ipratropium 1 ampul 12/17/18 08:00 12/17/18 07:19 Duoneb *Not For Prn Use* IH 1 ampul QIDRT SUSSY Administration Guaifenesin 200 mg 12/17/18 04:29 12/17/18 05:59 Robitussin PO 200 mg Q4H PRN Administration Cough Heparin Sodium (Porcine) 5,000 unit 12/16/18 22:45 12/17/18 01:47 Heparin SUB-Q 5,000 unit Q12HR SUSSY Administration Azithromycin 500 mg/ Sodium 250 mls @ 250 mls/hr 12/17/18 10:00 Chloride IV Q24HR SUSSY Protocol Ceftriaxone Sodium 1 gm in 50 mls @ 100 mls/hr 12/17/18 10:00 Rocephin/Ns 1 Gm/50 Ml IV Q24HR SUSSY Protocol Methylprednisolone Sodium Succinate 60 mg 12/17/18 06:00 12/17/18 06:00 Solu-Medrol IV 60 mg Q8HR SUSSY Administration
[2018-12-17] MEDS ORDERED: LEVAQUIN 750MG/150ML 750 MG/150 ML BAG IV SCH (10:00)
[2018-12-17] MEDS ORDERED: ZITHROMAX 500 MG in NACL 0.9% 250ML 250 ML IV SCH (10:00)
[2018-12-17] MEDS ORDERED: ROCEPHIN/NS 1 GM/50 ML 1 GM/50 ML BAG IV SCH (10:00)
--- NOTE | 2018-12-17 10:50 | Discharge Summary ---
Providers - Providers Date of Admission: 12/16/18 22:31 Attending physician: BOB PETE MD Primary care physician: PHYSICAL CHEMIST Hospitalization Condition: Stable Hospital course: 43-year-old woman who presents to the hospital with shortness of breath and wheezing x3 days Past medical history asthma Asthma exacerbation She received steroids nebs, chest PT. Patient clinically improved and was subsequently discharged. She states that she has not been able to get Symbicort, she has applied for other free clinic, but they do not have a supply right now, she does not know when they will get another one. She is awaiting them to supply her with Symbicort. Spoke to case management to help her apply for financial assistance with the drug company. She is being discharged on steroid taper along with maintenance medications for asthma Acute hypoxic respiratory failure Oxygen supplementation was given, she was weaned off oxygen prior to discharge DVT prophylaxis with Lovenox Disposition: DC-01 TO HOME OR SELFCARE Time spent for discharge: 33 mins Core Measure Documentation - Palliative Care Palliative Care/ Comfort Measures: Not Applicable - Core Measures Any of the following diagnoses?: none Exam - Constitutional Vitals: Temp Pulse Resp BP Pulse Ox 98.8 F 86 18 122/75 96 12/17/18 05:25 12/17/18 07:22 12/17/18 07:22 12/17/18 05:25 12/17/18 07:22 General appearance: Present: no acute distress, well-nourished - EENT Eyes: Present: PERRL ENT: hearing intact, clear oral mucosa - Neck Neck: Present: supple, normal ROM - Respiratory Respiratory effort: normal Respiratory: bilateral: wheezing - Cardiovascular Heart Sounds: Present: S1 & S2. Absent: rub, click - Extremities Extremities: pulses symmetrical, No edema Peripheral Pulses: within normal limits - Abdominal General gastrointestinal: Present: soft, non-tender, non-distended, normal bowel sounds Female genitourinary: Present: normal - Integumentary Integumentary: Present: clear, warm, dry - Musculoskeletal Musculoskeletal: gait normal, strength equal bilaterally - Psychiatric Psychiatric: appropriate mood/affect, intact judgment & insight - Neurologic Neurologic: CNII-XII intact, moves all extremities Plan Follow up with: PRIMARY CARE, [Primary Care Provider] - 3-5 Days Prescriptions: Albuterol Sulfate [Albuterol 0.63% NEBS] 0.63 mg IH TID PRN #120 neb PRN Reason: Wheezing Prednisone [predniSONE 10 mg (6-Day Pack, 21 Tabs)] 10 mg PO .TAPER #1 tab.ds.pk ALBUTEROL Inhaler (OR & NICU) [ProAir HFA Inhaler] 2 puff IH QID PRN #1 pump PRN Reason: Shortness Of Breath Montelukast [Singulair] 10 mg PO QPM #30 tablet Budesonide/Formoterol Fumarate [Symbicort 80-4.5 Mcg Inhaler] 1 puff IH BID #1 hfa.aer.ad
[2018-12-17 11:34] VITALS: BP 142/90
== END 2018-12-17 13:29 | disposition home or self-care (01) ==
LOC: ED 08:32 → 3A 22:31
PROVIDERS: ADMIT Internal Medicine; ATTEND Internal Medicine
DX: J45.901 Unspecified asthma with (acute) exacerbation (principal); R09.02 Hypoxemia
CPT/HCPCS: 36415; 71046; 80053; 81001; 82803; 84703; 85007; 85025; 94640; 94644; 96365; 96367; 96368; 96372; 96375; 96376; 99284; G0378; J0456; J0696; J1100; J1644; J2920; J2930; J3475; J7030; J7050